=== PATIENT | male | born 1965 | race Caucasian/White ===

== ENCOUNTER → 2021-06-10 14:44 | Outpatient (CLI) | payer OTHER, SELFPAY ==
--- NOTE | ~2021-06-10 | CT_ITS ---
EXAMINATION: CT abdomen pelvis wo con DATE: 06/10/2021 15:19 INDICATION: Renal colic, generalized abdominal pain. Microscopic hematuria. TECHNIQUE: Computed tomography (CT) of the abdomen and pelvis was performed without intravenous contr ast. Automated exposure control and iterative reconstruction technique were employed. Exam dose: 565 .88 mGy-cm total exam DLP. COMPARISON: October 16, 2017 CT abdomen pelvis FINDINGS: Mild discoid scarring in the middle lobe, also present on 10/16/2017. The lung bases are violet r of infiltrate or consolidation. Normal heart size. No pericardial or pleural effusion. Small sliding hiatal hernia. The gallbladder appears unremarkable. No bile duct or pancreatic duct dilatation. Calcified splenic and hepatic granulomas, consistent with old granulomatous disease. No hepatic, splenic, pancreatic, and adrenal or renal space-occupying mass lesion is evident on this limited noncontrast examination. No urinary tract calculus or hydroureteronephrosis. The urinary bladder is unremarkable. There is atherosclerotic calcification of the abdominal aorta and iliac arteries but no aneurysm. No intraperitoneal or retroperitoneal or pelvic mass lesion or adenopathy or ascites. Moderate prostate enlargement.. There are numerous colonic diverticula; no CT evidence of diverticulitis. No bowel obstruction or in traperitoneal free air. No suspicious osteolytic or osteoblastic lesions are noted. IMPRESSION: No urinary tract calculus or hydroureteronephrosis Moderate prostate enlargement Diverticulosis of the colon; no CT evidence of diverticulitis Small sliding hiatal hernia Reviewed, dictated and finalized at [facility]. Reviewed, dictated and finalized at location B.
== END ==
PROVIDERS: PCP Family Medicine; Visit Provider Family Medicine
DX: R10.9 Unspecified abdominal pain (principal); K57.30 Diverticulosis of large intestine without perforation or abscess without bleeding; K44.9 Diaphragmatic hernia without obstruction or gangrene; N40.0 Benign prostatic hyperplasia without lower urinary tract symptoms
CPT/HCPCS: 74176

== ENCOUNTER 2024-10-23 13:56 | Emergency (ER) | payer OTHER, SELFPAY ==
--- NOTE | ~2024-10-23 | CT_ITS ---
EXAMINATION: CT abdomen pelvis wo con DATE: 10/23/2024 16:54 INDICATION: Left flank pain. TECHNIQUE: Computed tomography (CT) of the abdomen and pelvis was performed without intravenous contr ast. Automated exposure control and iterative reconstruction technique were employed. The dose-length product was 470.96 mGy-cm. COMPARISON: CT abdomen and pelvis 06/10/2021 FINDINGS: The visualized portions of lung bases are clear without pneumonia or pleural effusion. The heart size is normal. No pericardial effusion. Calcifications in the liver and spleen are consistent with old granulomatous disease. The gallbladder, pancreas, adrenal glands, and left kidney are normal . There is a 6 mm cyst in right kidney. There is no urolithiasis. There is diverticulosis of the colo n without evidence of diverticulitis. There are no dilated loops of bowel. The appendix is normal. Th ere are no pathologically enlarged lymph nodes. There is no free intraperitoneal fluid. There is mode rate lumbar spondylosis. IMPRESSION: 1. No urolithiasis. Reviewed, dictated and finalized at location A. [employer] IMPRESSION: 1. No urolithiasis.
[2024-10-23 14:06] VITALS: BP 168/91; PULSE 69; TEMP 36.4; O2SAT 100
--- OUTSIDE RECORDS SUMMARY | 2024-10-23 14:11 | XMS_ITS | Clinical Summary ---
Author Organization [facility] Address [address] [place] [address] Care Team Providers Care Switchboard Receptionist Name Role Phone Unavailable Primary Care Provider Unavailabl e Source Comments [facility],non-owned Affiliates and Associated Physician Practices is amultiple site organization consisting of ambulatory clinics and hospital sitesin [place], [place] and [place]. This disclosure is being madepursuant to the Care Everywhere program and may not contain all information available regarding this patient. Last updated 18.[facility] [employer] Allergies No known active allergies Social History Tobacco Use Types Packs/Day Years Used Date Smoking Tobacco: Never Assessed Sex and Gender Information Value Date Recorded Sex Assigned at Not on file Gender Identity Not on file Sexual Orientation Not on file Last Filed Vital Signs Vital Sign Reading Time Taken Comments Blood Pressure 133/56 10/14/2013 1:54 AM AUTO TRANSPORT DRIVER Pulse 76 10/14/2013 1:54 AM AUTO TRANSPORT DRIVER Temperature 36.7 C (98 F) 10/13/2013 9:56 PM AUTO TRANSPORT DRIVER Respiratory Rate 16 10/13/2013 9:56 PM AUTO TRANSPORT DRIVER Oxygen Saturation 100% 10/14/2013 1:54 AM AUTO TRANSPORT DRIVER Inhaled Oxygen Concentration - - Weight 79.4 kg (175 lb) 10/13/2013 9:56 PM AUTO TRANSPORT DRIVER Height 170.2 cm (5' 7 ) 10/13/2013 9:56 PM AUTO TRANSPORT DRIVER Body Mass Index 27.41 10/13/2013 9:56 PM AUTO TRANSPORT DRIVER Plan of Treatment Health Maintenance Due Date Last Done Comments COLOGUARD (AGES 45-75) - COL ON CA SCREENING 1965 COLON MONITORING 1965 COLONOSCOPY - COLON CA SCREENING 1965 CT COLONOGRAPHY - COLON CA SCREENING 1965 Colorectal Cancer Screening 1965 FIT - COLON CA SCREENING 1965 FLEX SIG - COLON CA SCREENING 1965 LIPID TESTING 1965 HIV SCREENING 02/17/1980 HEPATITIS C SCREENING 02/12/1983 DTAP/TDAP/TD VACCINES (1 - Tdap) 02/17/1984 HEPATITIS B VACCINE (1 of 3 - 19+ 3-dose series) 02/17/1984 PNEUMOCOCCAL VACCINE 50+ (1 of 1 - PCV) 2015 ZOSTER VACCINE (1 of 2) 2015 COVID-19 VACCINE (1 - 2023-2 5 season) 2024 INFLUENZA VACCINE (#1) 2024 DEPRESSION SCREENING 09/13/2024 HIB VACCINE Aged Out No longer eligi ble based on patient's age to complete this topic HPV VACCINE Aged Out No longer eligi ble based on patient's age to complete this topic MENINGOCOCCAL (Group B) VACCINE Aged Out No longer eligible based on patient's age to complete this topic MENINGOCOCCAL VACCINE Aged Out No irasema ayesha eligible based on patient's age to complete this topic PNEUMOCOCCAL VACCINE Aged Out No long er eligible based on patient's age to complete this topic
--- OUTSIDE RECORDS SUMMARY | 2024-10-23 14:11 | XMS_ITS | Referral Summary ---
Author Organization [facility] Address [address] [place] [address] Care Team Providers Care Code Machine Operator Name Role Phone Unavailable Primary Care Provider Unavailabl e Source Comments [facility],non-owned Affiliates and Associated Physician Practices is amultiple site organization consisting of ambulatory clinics and hospital sitesin [place], [place], [place] and [place]. This disclosure is being madepursuant to the Care Everywhere program and may not contain all information available regarding this patient. Last updated 18.[facility] [employer] Allergies No known active allergies Social History Tobacco Use Types Packs/Day Years Used Date Smoking Tobacco: Never Assessed Sex and Gender Information Value Date Recorded Sex Assigned at Not on file Gender Identity Not on file Sexual Orientation Not on file Last Filed Vital Signs Vital Sign Reading Time Taken Comments Blood Pressure 133/56 10/14/2013 1:54 AM PHARMACY BUYER Pulse 76 10/14/2013 1:54 AM PHARMACY BUYER Temperature 36.7 C (98 F) 10/13/2013 9:56 PM PHARMACY BUYER Respiratory Rate 16 10/13/2013 9:56 PM PHARMACY BUYER Oxygen Saturation 100% 10/14/2013 1:54 AM PHARMACY BUYER Inhaled Oxygen Concentration - - Weight 79.4 kg (175 lb) 10/13/2013 9:56 PM PHARMACY BUYER Height 170.2 cm (5' 7 ) 10/13/2013 9:56 PM PHARMACY BUYER Body Mass Index 27.41 10/13/2013 9:56 PM PHARMACY BUYER Plan of Treatment Not on file
--- OUTSIDE RECORDS SUMMARY | 2024-10-23 14:11 | XMS_ITS | Patient Health Summary ---
Author Organization [facility] Address [address] [place] [address] Care Team Providers Care Cutter Grinder Name Role Phone Unavailable Primary Care Provider Unavailabl e Note from [facility],non-owned Affiliates and Associated Physician Practices is amultiple site organization consisting of ambulatory clinics and hospital sitesin [place], [place], [place] and [place]. This disclosure is being madepursuant to the Care Everywhere program and may not contain all information available regarding this patient. Last updated 18.[facility] Allergies No known active allergies Social History Tobacco Use Types Packs/Day Years Used Date Smoking Tobacco: Never Assessed Sex and Gender Information Value Date Recorded Sex Assigned at Not on file Gender Identity Not on file Sexual Orientation Not on file Last Filed Vital Signs Vital Sign Reading Time Taken Comments Blood Pressure 133/56 10/14/2013 1:54 AM PAPER BAG MAKING MACHINIST Pulse 76 10/14/2013 1:54 AM PAPER BAG MAKING MACHINIST Temperature 36.7 C (98 F) 10/13/2013 9:56 PM PAPER BAG MAKING MACHINIST Respiratory Rate 16 10/13/2013 9:56 PM PAPER BAG MAKING MACHINIST Oxygen Saturation 100% 10/14/2013 1:54 AM PAPER BAG MAKING MACHINIST Inhaled Oxygen Concentration - - Weight 79.4 kg (175 lb) 10/13/2013 9:56 PM PAPER BAG MAKING MACHINIST Height 170.2 cm (5' 7 ) 10/13/2013 9:56 PM PAPER BAG MAKING MACHINIST Body Mass Index 27.41 10/13/2013 9:56 PM PAPER BAG MAKING MACHINIST Procedures * XR HAND LEFT 3VW OR MORE(Performed 10/14/2013) Performed for Hand pain Results * XR HAND 3+ VW LEFT (10/14/2013 12:12 AM PAPER BAG MAKING MACHINIST) Anatomical Region Laterality Modality Wrist / Hand Radiographic Ernie ging 10/14/2013 10:1 1 AM PAPER BAG MAKING MACHINIST Impressions 10/14/2013 10:11 AM PAPER BAG MAKING MACHINIST Soft tissue injury no fracture or foreign body Narrative 10/14/2013 10:11 AM PAPER BAG MAKING MACHINIST The third digit injury Three views were obtained. HISTORY: Pain FINDINGS: There is a soft tissue defect along the distal palmar aspect of the third digit. There is no foreign body seen The osseous structures are unremarkable. No acute fracture or dislocation is seen. The joint spaces are well preserved. Procedure Note Mike Stuart MD - 10/14/2013 The third digit injury Three views were obtained. HISTORY: Pain FINDINGS: There is a soft tissue defect along the distal palmar aspect of the third digit. There is no foreign body seen The osseous structures are unremarkable. No acute fracture or dislocation is seen. The joint spaces are well preserved. IMPRESSION Soft tissue injury no fracture or foreign body Efra High MD [facility] ORDERABLES
--- OUTSIDE RECORDS SUMMARY | 2024-10-23 14:11 | XMS_ITS | Continuity of Care Document ---
Author Organization [facility] Address [address] [place] [address] [address] [place] [address] Phone Care Team Providers Care Ice Cream Vault Worker Name Role Phone Gilbert OD, Musa Unavailable Unavailable Procedures Procedure Date No Charge Glasses Check Remove Foreign Body From Eye Advance Directives Directive Yes / No Effective Date File Name No Information Encounters Encounter Description Practice Location Reason(s) For Visit Diagnoses Date Provider Providers Copied on Encounter [facility], [address] [place] [address] [address], [place], [place], [id number], tel:[phone] [facility] No Information 7200 7 Gilbert OD Musa. [address] [place], [place] [address] [facility] [address], [place], [place], [facility], . tel:[phone] Referring Provider: [facility] [address], [place], [place], [facility]. tel:[phone] [facility], [address] [place] [address] [address], [place], [place], [id number], tel:[phone] [facility] No Information [address] Iwona Vargas. [facility] [address], [place], [address], . tel:[phone] Family History Family Member Type Diagnosis Age At Onset No Information Payers Payer name Insurance type Covered constitution party ID Authoriza tialan(s) [facility] [id number] Social History Type Description Quantity Date Captured Comments Sex Male Smoking Status No Information Chief Complaint And Reason For Visit No Information Reason For Referral Reason For Referral No Information History Of Present Illness Encounter Date Complaint History Of Prese nt Illness No Information Functional Status Date Functional Assessmen t No Information Instructions Date Instruction Additional Infor mation No Information Assessments Type Assessment Date No Information Patient Care Teams Name Effective Dates (start - stop) Status Members No Information
--- OUTSIDE RECORDS SUMMARY | 2024-10-23 14:11 | XMS_ITS | CONTINUITY OF CARE DOCUMENT ---
Author Name shalini loya Address Unknown Organization [facility] Address [address] [place] [address] Phone [phone] Care Team Providers Care Manager Video Games Name Role Phone Leonel MCINTOSH, Vonnie Unavailable AXEL MCINTOSH, JEANNINE Unavailable INSURANCE PROVIDERS Payer name Policy type / Coverage type [place] [employer] party ID [facility] [id number] Other [id number]
--- NOTE | 2024-10-23 16:23 | ED_ITS ---
HPI - Back Pain/Injury General Chief Complaint: Back Pain/Injury <Lia Gonzales PA-C - Last Filed: 10/25/24 19:00> Stated Complaint: L flank pain, dark urine <Lia Gonzales PA-C - Last Filed: 10/25/24 19:00> Time Seen by Provider: 10/23/24 16:23 <Lia Gonzales PA-C - Last Filed: 10/25/24 19:00> Focused HPI: This is a 59 year old male that presents to the ER for left lower back pain. Ongoing over the last couple of days. Reports the pain is worsening. Worse with movement. He took Naproxen yesterday for pain. No known injury or trauma. GENERAL: Well-appearing, well-nourished, and in no acute distress. HEAD: Normocephalic, atraumatic. CHEST: Clear to auscultation. ?No respiratory distress. HEART: Regular rate and rhythm.? NEURO: ?Alert and oriented x3. Patient screened in triage and initial orders placed.? ?Additional care and disposition to be based upon?diagnostic testing and treatment. <Lia Gonzales PA-C - Last Filed: 10/25/24 19:00> History of Present Illness HPI Narrative: Agree with the HPI above. Patient has a history of sciatica with similar symptoms in the past. Denies any weakness in limb or any sensory changes. No urinary incontinence, saddle anesthesias or urinary retention. Denies any injury trauma. No history of surgeries to the back or leg. <Rogers Patel MD - Last Filed: 10/23/24 20:43> Related Data Home Medications: Home Medications ?Medication ?Instructions ?Recorded ?Confirmed ?Last Taken ?Type cyanocobalamin (vitamin B-12) 1,000 mcg PO DAILY 05/18/22 08/02/24 Unknown History 1,000 mcg tablet <Lia Gonzales PA-C - Last Filed: 10/25/24 19:00> Allergies/Adverse Reactions: Allergies Allergy/AdvReac Type Severity Reaction Status Date / Time atorvastatin AdvReac Intermediate Cramping Verified 12/01/22 17:26 of the Muscles <Lia Gonzales PA-C - Last Filed: 10/25/24 19:00> Review of Systems 2 Review of Systems: As reviewed above in HPI <Rogers Patel MD - Last Filed: 10/23/24 20:43> [facility] Past Medical History Medical History: Medical History BMI 28.0-28.9,adult Actinic keratoses Episodic lightheadedness Acute reaction to situational stress (~09/2023) Laceration of forearm, left (~03/27/23) superficial laceration 4 cm left forearm from tree branch BMI 27.0-27.9,adult 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 Folic acid greater than 24 on 11/27/2022. Folic acid 24 with hemoglobin 14.3 on 06/09/2023. Folic acid 18.7 with hemoglobin 13.9 on 07/27/2024. Vitamin B12 deficiency (05/02/22) Level low at 398 with goal greater than 400 on 05/02/2022 with hemoglobin 14.6. Level normal at 689 on 11/27/2022. Normal at 876 with hemoglobin 14.3 on 06/09/2023. Level normal at 878 on 07/27/2024. Gastritis Chronic rhinitis BMI 29.0-29.9,adult Microscopic hematuria urinalysis normal on 05/02/2022. Urinalysis completely normal 06/09/2023. Abdominal pain in male COVID-19 virus detected (01/10/20) Tobacco use disorder, continuous 1 pack daily (1-1 and half packs of cigarettes daily for 40 years). 1/3 of a pack daily. Encounter for wellness examination in adult Colon cancer screening Normal colonoscopy 2016 with recheck in 10 years. Encounter for prostate cancer screening PSA normal at 1.11 on 05/02/2022. PSA 0.54 on 06/09/2023. PSA 0.45 on 07/27/2024. Mixed hyperlipidemia Total cholesterol 233, triglycerides 164, HDL 33 and LDL 169 on 05/02/2022. Cholesterol 232, triglycerides 101, HDL 32, LDL 178 with ratio 7.3 on 11/27/2022. Cholesterol 212, triglycerides 156, HDL 34, LDL 156 with ratio 6.2 on 06/09/2023. cholesterol 215, triglycerides 131, HDL 29, LDL 160 with ratio 7.4 on 01/01/2024. Cholesterol 228, HDL 34, triglycerides 136, LDL 167 with ratio of 6.7 on 07/27/2024. Essential (primary) hypertension <Lia Gonzales PA-C - Last Filed: 10/25/24 19:00> Social History Social History: Social History Smoking packs per day: 0.33 Smoking cigarettes per day: 6.6 Years smoked: 30 Smoking pack-years: 9.90 Smoking status: Current every day smoker ( 1 pack daily) Tobacco type: cigarettes Alcohol intake: current Alcohol use details: beer and liquor twice a month Substance use: never Substance use type: does not use Lack of Transportation: No Lack of Food: Never True Current Housing: I Have Housing Concerned About Future Housing: No Difficulty Paying Gas/Electric Bills: No Difficulty Paying for Meds: No Currently Unemployed: No Education: High School Diploma/GED Difficulty w/ Childcare or Family Care: No <Lia Gonzales PA-C - Last Filed: 10/25/24 19:00> Exam 2 Narrative: GENERAL: [Well-appearing, well-nourished, and in no acute distress.] HEAD: [Normocephalic, atraumatic.] EYES: [PERRLA and EOMI.] ENT: Nares clear, no rhinorrhea or epistaxis. Mucous membranes moist. NECK: Supple. CHEST: [Clear to auscultation. No respiratory distress.] HEART: [Regular rate and rhythm]. No murmur heard. [Normal peripheral pulses.] ABDOMEN: [Soft, nondistended], [nontender], [No rigidity or guarding] EXTREMITIES: Positive left-sided straight leg raise, normal range of motion, negative contralateral straight leg raise. Palpable reproducible pain with palpation of the left-sided sacroiliac joint, sciatic nerve distribution pain. Able to flex and extend at the left hip, knee and plantar and dorsiflex with 5/5 strength albeit a listing pain. Able to ambulate. Sitting with his legs crossed. No midline tenderness. No deformity. No step-offs. SKIN: Warm, dry, no rash. NEURO: [No focal deficits]. Alert and oriented [x3.] No saddle anesthesias or paresthesias. No weakness, 5/5 strength in the distal legs. No ataxia. PSYCH: [Normal mood and affect.] <Rogers Patel MD - Last Filed: 10/23/24 20:43> Course Vital Signs Vital signs: Vital Signs Temperature 97.6 F 10/23/24 14:06 Pulse Rate 69 10/23/24 14:06 Blood Pressure 168/91 H 10/23/24 14:06 Pulse Oximetry 100 10/23/24 14:06 Oxygen Delivery Room Air 10/23/24 14:06 Temperature 97.6 F 10/23/24 14:06 Pulse Rate 69 10/23/24 21:07 Respiratory Rate 19 10/23/24 21:07 Blood Pressure 162/81 H 10/23/24 21:07 Pulse Oximetry 98 10/23/24 21:07 Oxygen Delivery Room Air 10/23/24 14:06 <Lia Gonzales PA-C - Last Filed: 10/25/24 19:00> Vital Signs Temperature 97.6 F 10/23/24 14:06 Pulse Rate 69 10/23/24 14:06 Blood Pressure 168/91 H 10/23/24 14:06 Pulse Oximetry 100 10/23/24 14:06 Oxygen Delivery Room Air 10/23/24 14:06 Temperature 97.6 F 10/23/24 14:06 Pulse Rate 69 10/23/24 21:07 Respiratory Rate 19 10/23/24 21:07 Blood Pressure 162/81 H 10/23/24 21:07 Pulse Oximetry 98 10/23/24 21:07 Oxygen Delivery Room Air 10/23/24 14:06 <Rogers Patel MD - Last Filed: 10/23/24 20:43> MDM - Back Pain/Injury MDM Narrative Medical decision making narrative: 59-year-old otherwise healthy appearing male presenting to the emergency depart with left-sided back pain. He states he has had recurrence of similar symptoms in the past and thinks it could be sciatica versus a kidney stone. He was sent into the ER for a CT scan. He has pain elicited with range of motion is left lower extremity but has full strength and no signs of neurovascular compromise. 2+ dorsalis pedis pulse. Plantar and dorsiflexion of the ankle 5/5, hip and knee flexion with 5/5 strength and symmetric. Positive straight leg raise on the left side, reproducible pain left-sided sacroiliac joint. No midline tenderness. No red flag symptoms for cauda equina or spinal cord issue based on history and exam. Likely has sciatica or lumbago. Low suspicion kidney stone as he has no urinary symptoms, fever, chills, abdominal pain. CT of the abdomen pelvis was obtained in addition to blood work and urinalysis. He was given Decadron and Dilaudid for analgesia intramuscular injection. Workup shows no leukocytosis or significant anemia. Normal platelet count. Urinalysis without any signs of active infection but there is some blood which means he could potentially passed a previous kidney stone but his CT scan shows no evidence of urolithiasis presently. CT scan also comments on some mild diverticulosis but no diverticulitis, no enlarged lymph nodes, no intraperitoneal free fluid. Moderate lumbar spondylosis is observed. Patient is re-evaluated with symptom improvement. He is safe and stable for discharge home at this time and will be given a steroid for the next several days and encouraged to follow-up with regular doctor or return with any new concerns. <Rogers Patel MD - Last Filed: 10/23/24 20:43> Differential Diagnosis Differential diagnosis: Likely lumbar radiculopathy, sciatica, strain of lumbar region, renal colic, pyelonephritis and other <oRgers Patel MD - Last Filed: 10/23/24 20:43> Medical Records Attestation: I reviewed the patient's medical records. <Rogers Patel MD - Last Filed: 10/23/24 20:43> Lab Data Attestation: I reviewed the patient's lab results. <Rogers Patel MD - Last Filed: 10/23/24 20:43> Result diagrams: 10/23/24 20:13 10/23/24 20:13 <Lia Gonzales PA-C - Last Filed: 10/25/24 19:00> Labs: Lab Results 10/23/24 10/23/24 Range/Units 16:32 20:13 WBC 7.7 (4.5-10.0) K/mm3 RBC 4.52 L (4.6-6.20) M/mm3 Hgb 13.4 L (14.0-18.0) g/dL Hct 39.6 L (42.0-52.0) % MCV 87.6 (80-100) fl MCH 29.6 (26-34) pg MCHC 33.8 (32-36) g/dl RDW 13.5 (11.5-14.5) % Plt Count 238 (150-375) k/mm3 MPV 9.8 (7.4-10.4) fl Immature Gran % (Auto) 0.4 (0-0.5) % Neut % (Auto) 63.7 (45.5-73.1) % Lymph % (Auto) 26.9 (18.3-44.2) % [place] % (Auto) 6.2 (2.6-8.5) % Eos % (Auto) 1.9 (0-4.4) % Baso % (Auto) 0.9 (0.2-1.2) % Lymph # (Auto) 2.08 (0.9-3.2) K/mm3 [place] # (Auto) 0.5 (0.1-0.6) K/mm3 Eos # (Auto) 0.2 (0-0.3) K/mm3 Baso # (Auto) 0.1 (0.0-0.1) K/mm3 Abs Immat Gran (auto) 0.03 (0.00-0.031) K/mm3 Absolute Neuts (auto) 4.9 (1.3-6.7) K/mm3 Absolute Nucleated RBC 0.000 (0.0-0.012) K/mm3 Nucleated RBC % 0.0 (0.0-0.2) % Sodium 140 (137-145) mmol/L Potassium 4.0 (3.4-5.0) mmol/L Chloride 102 (98-107) mmol/L Carbon Dioxide 26 (22-30) mmol/L Anion Gap 12 (4-12) mmol/L BUN 30 H (9-20) mg/dL Creatinine 1.21 (0.7-1.3) mg/dL Estim Creat Clear Calc 55 ml/min Estimated GFR > 60 (59 - ) Glucose 116 H (65-110) mg/dL Calcium 9.4 (8.4-10.2) mg/dL Total Bilirubin 0.5 (0.2-1.3) mg/dL AST 24 (17-59) U/L ALT 36 (6-50) U/L Alkaline Phosphatase 86 (38-126) U/L Total Protein 8.0 (6.3-8.2) g/dL Albumin 4.5 (3.5-5.1) g/dL Urine Color Yellow (Yellow) Urine Appearance Cloudy H (Clear) Urine pH 5.5 (5.0-9.0) Ur Specific [place] 1.030 (1.001-1.035) Urine Protein Trace (Negative) mg/dL Urine Glucose (UA) Negative (Negative) mg/dL Urine Ketones Trace H (Negative) mg/dL Ur Blood (Man) 1+ H (Negative) Urine Nitrate Negative (Negative) Urine Bilirubin Negative (Negative) Urine Urobilinogen 1.0 (<2.0) mg/dL Leukocyte Esterase Rfl Negative (Negative) ARMANDO/UL Urine RBC 11-20 H (0-2) /hpf Urine WBC 0-5 (0-3) /hpf Ur Squamous Epith Cells None seen (Few) /hpf Urine Bacteria None seen /hpf Urine Casts 0-2 <Lia Gonzales PA-C - Last Filed: 10/25/24 19:00> Lab Results 10/23/24 10/23/24 Range/Units 16:32 20:13 WBC 7.7 (4.5-10.0) K/mm3 RBC 4.52 L (4.6-6.20) M/mm3 Hgb 13.4 L (14.0-18.0) g/dL Hct 39.6 L (42.0-52.0) % MCV 87.6 (80-100) fl MCH 29.6 (26-34) pg MCHC 33.8 (32-36) g/dl RDW 13.5 (11.5-14.5) % Plt Count 238 (150-375) k/mm3 MPV 9.8 (7.4-10.4) fl Immature Gran % (Auto) 0.4 (0-0.5) % Neut % (Auto) 63.7 (45.5-73.1) % Lymph % (Auto) 26.9 (18.3-44.2) % [place] % (Auto) 6.2 (2.6-8.5) % Eos % (Auto) 1.9 (0-4.4) % Baso % (Auto) 0.9 (0.2-1.2) % Lymph # (Auto) 2.08 (0.9-3.2) K/mm3 [place] # (Auto) 0.5 (0.1-0.6) K/mm3 Eos # (Auto) 0.2 (0-0.3) K/mm3 Baso # (Auto) 0.1 (0.0-0.1) K/mm3 Abs Immat Gran (auto) 0.03 (0.00-0.031) K/mm3 Absolute Neuts (auto) 4.9 (1.3-6.7) K/mm3 Absolute Nucleated RBC 0.000 (0.0-0.012) K/mm3 Nucleated RBC % 0.0 (0.0-0.2) % Sodium 140 (137-145) mmol/L Potassium 4.0 (3.4-5.0) mmol/L Chloride 102 (98-107) mmol/L Carbon Dioxide 26 (22-30) mmol/L Anion Gap 12 (4-12) mmol/L BUN 30 H (9-20) mg/dL Creatinine 1.21 (0.7-1.3) mg/dL Estim Creat Clear Calc 55 ml/min Estimated GFR > 60 (59 - ) Glucose 116 H (65-110) mg/dL Calcium 9.4 (8.4-10.2) mg/dL Total Bilirubin 0.5 (0.2-1.3) mg/dL AST 24 (17-59) U/L ALT 36 (6-50) U/L Alkaline Phosphatase 86 (38-126) U/L Total Protein 8.0 (6.3-8.2) g/dL Albumin 4.5 (3.5-5.1) g/dL Urine Color Yellow (Yellow) Urine Appearance Cloudy H (Clear) Urine pH 5.5 (5.0-9.0) Ur Specific [place] 1.030 (1.001-1.035) Urine Protein Trace (Negative) mg/dL Urine Glucose (UA) Negative (Negative) mg/dL Urine Ketones Trace H (Negative) mg/dL Ur Blood (Man) 1+ H (Negative) Urine Nitrate Negative (Negative) Urine Bilirubin Negative (Negative) Urine Urobilinogen 1.0 (<2.0) mg/dL Leukocyte Esterase Rfl Negative (Negative) ARMANDO/UL Urine RBC 11-20 H (0-2) /hpf Urine WBC 0-5 (0-3) /hpf Ur Squamous Epith Cells None seen (Few) /hpf Urine Bacteria None seen /hpf Urine Casts 0-2 <Rogers Patel MD - Last Filed: 10/23/24 20:43> Imaging Data Attestation: I personally reviewed and interpreted this imaging study as follows: < Rogers Patel MD - Last Filed: 10/23/24 20:43> My impression: Impressions Abdomen/Pelvis CT 10/23/24 16:55 IMPRESSION: 1. No urolithiasis. <Rogers Patel MD - Last Filed: 10/23/24 20:43> Critical Care Time Critical Care Time Critical Care Time: No <Lia Gonzales PA-C - Last Filed: 10/25/24 19:00> Discharge Plan Discharge Clinical Impression: Low back pain Qualifiers: Chronicity: acute Back pain laterality: left Sciatica presence: with sciatica S ciatica laterality: sciatica of left side Qualified Code(s): M54.42 - Lumbago with sciatica, left side Sciatica Qualifiers: Laterality: left Qualified Code(s): M54.32 - Sciatica, left side Strain of lumbar region Qualifiers: Encounter type: initial encounter Qualified Code(s): S39.012A - Strain of muscle, fascia and tendon of lower back, initial encounter <Lia Gonzales PA-C - Last Filed: 10/25/24 19:00> Patient Disposition: Home, Self-Care <Lia Gonzales PA-C - Last Filed: 10/25/24 19:00> Condition: Stable <Lia Gonzales PA-C - Last Filed: 10/25/24 19:00> Instructions: Antibiotic Form, Acute Low Back Pain (ED), Back Pain (ED), Lower Back Exercises (ED) <Lia Gonzales PA-C - Last Filed: 10/25/24 19:00> Additional Instructions: Your CT scan was reassuring, there is some small amount of blood in your urine which could mean you did pass a recent kidney stone but ultimately I believe your symptoms are likely secondary to musculoskeletal strain in would benefit from some steroids for next few days in addition to Tylenol and Naprosyn at home. You can apply local heat patches or lidocaine. Follow-up with regular doctor. Return to the ER if you have increased pain in your back, you develop lower extremity weakness/numbness/paralysis, you have numbness or tingling in your private parts, or you are unable to control your ability to urinate/stool. <Lia Gonzales PA-C - Last Filed: 10/25/24 19:00> Patient Language: Divehi <MARY Kilgore Last Filed: 10/25/24 19:00> Prescriptions: New acetaminophen [Tylenol Extra Strength] 500 mg tablet 1,000 mg PO TID PRN (Reason: pain) Qty: 30 0RF prednisone 50 mg tablet 50 mg PO DAILY 5 Days Qty: 5 0RF lidocaine 5 % adhesive patch,medicated 1 patch topical DAILY Qty: 15 0RF Rx Instructions: leave on most painful area for up to 12 hrs No Action irbesartan-hydrochlorothiazide 300-12.5 mg tablet 1 tablet PO DAILY Qty: 90 3RF rosuvastatin [Crestor] 10 mg tablet 10 mg PO DAILY Qty: 30 11RF omeprazole 20 mg capsule,delayed release(DR/EC) 20 mg PO DAILY Qty: 30 11RF cyanocobalamin (vitamin B-12) 1,000 mcg tablet 1,000 mcg PO DAILY sildenafil 100 mg tablet 100 mg PO DAILY PRN (Reason: sexual activity) Qty: 90 3RF Rx Instructions: administer 30 minutes to 4 hours before activity orellana pay with good Rx discount fluorouracil [Efudex] 5 % cream 1 applic topical BID 14 Days Qty: 40 1RF Rx Instructions: apply sufficient amount to cover all lesions twice daily for 2 weeks on and then 2 weeks off until clear folic acid 1 mg tablet 1 mg PO DAILY Qty: 90 3RF <Lia Gonzales PA-C - Last Filed: 10/25/24 19:00> Follow-up/Referrals: Lonnie Rodriguez MD [Primary Care Provider] - <Lai Gonzales PA-C - Last Filed: 10/25/24 19:00> Time of Disposition: 20:42 <Lia Gonzales PA-C - Last Filed: 10/25/24 19:00> 20:42 <Rogers Patel MD - Last Filed: 10/23/24 20:43>
[2024-10-23 16:41] LABS: Add Urine Microscopic? YES; Appearance Urine Cloudy (Clear); Bacteria Urine None Seen /hpf; Bilirubin Urine Negative (Negative); Blood Urine 1+ (Negative); Color Urine Yellow (Yellow); Glucose Urine UA Negative (Negative); Ketones Urine Trace mg/dL (Negative); Leukocyte Esterase Ur Negative LEU/UL (Negative); Nitrate Urine Negative (Negative); Non Pathogenic Casts 0-2; Protein Urine Trace mg/dL (Negative); Squamous Epithelial Cell Urine None Seen /hpf (Few); WBC Urine 0-5 /hpf (0-3); pH Urine 5.5 (5.0-9.0)
[2024-10-23 17:09] VITALS: BP 170/84; PULSE 66; RESP 17; O2SAT 99
--- OUTSIDE RECORDS SUMMARY | 2024-10-23 20:10 | XMS_ITS | Referral Summary ---
Author Organization [facility] Address [address] [place] [address] Care Team Providers Care Director Global Name Role Phone Unavailable Primary Care Provider Unavailabl e Source Comments [facility],non-owned Affiliates and Associated Physician Practices is amultiple site organization consisting of ambulatory clinics and hospital sitesin [place], [place], [place] and [place]. This disclosure is being madepursuant to the Care Everywhere program and may not contain all information available regarding this patient. Last updated 18.[facility] [employer] Allergies No known active allergies Social History Tobacco Use Types Packs/Day Years Used Date Smoking Tobacco: Never Assessed Sex and Gender Information Value Date Recorded Sex Assigned at Not on file Gender Identity Not on file Sexual Orientation Not on file Last Filed Vital Signs Vital Sign Reading Time Taken Comments Blood Pressure 133/56 10/14/2013 1:54 AM [employer] Pulse 76 10/14/2013 1:54 AM [employer] Temperature 36.7 C (98 F) 10/13/2013 9:56 PM [employer] Respiratory Rate 16 10/13/2013 9:56 PM [employer] Oxygen Saturation 100% 10/14/2013 1:54 AM [employer] Inhaled Oxygen Concentration - - Weight 79.4 kg (175 lb) 10/13/2013 9:56 PM [employer] Height 170.2 cm (5' 7 ) 10/13/2013 9:56 PM [employer] Body Mass Index 27.41 10/13/2013 9:56 PM [employer] Plan of Treatment Not on file
--- OUTSIDE RECORDS SUMMARY | 2024-10-23 20:10 | XMS_ITS | CONTINUITY OF CARE DOCUMENT ---
Author Name shalini loya Address Unknown Organization [facility] Address [address] [place] [address] Phone [phone] Care Team Providers Care Design And Sales Consultant Name Role Phone Leonel MCINTOSH, Vonnie Unavailable AXEL MCINTOSH, JEANNINE Unavailable [phone] INSURANCE PROVIDERS Payer name Policy type / Coverage type [place] red green party ID [facility] [id number] Other [id number]
--- OUTSIDE RECORDS SUMMARY | 2024-10-23 20:10 | XMS_ITS | Clinical Summary ---
Author Organization [facility] Address [address] [place] [address] Care Team Providers Care Oil And Gas Principal Name Role Phone Unavailable Primary Care Provider Unavailabl e Source Comments [facility],non-owned Affiliates and Associated Physician Practices is amultiple site organization consisting of ambulatory clinics and hospital sitesin [place], [place], [place] and [place]. This disclosure is being madepursuant to the Care Everywhere program and may not contain all information available regarding this patient. Last updated 18.[facility] [employer] Allergies No known active allergies Social History Tobacco Use Types Packs/Day Years Used Date Smoking Tobacco: Never Assessed Sex and Gender Information Value Date Recorded Sex Assigned at Not on file Gender Identity Not on file Sexual Orientation Not on file Last Filed Vital Signs Vital Sign Reading Time Taken Comments Blood Pressure 133/56 10/14/2013 1:54 AM [employer] Pulse 76 10/14/2013 1:54 AM [employer] Temperature 36.7 C (98 F) 10/13/2013 9:56 PM [employer] Respiratory Rate 16 10/13/2013 9:56 PM [employer] Oxygen Saturation 100% 10/14/2013 1:54 AM [employer] Inhaled Oxygen Concentration - - Weight 79.4 kg (175 lb) 10/13/2013 9:56 PM [employer] Height 170.2 cm (5' 7 ) 10/13/2013 9:56 PM [employer] Body Mass Index 27.41 10/13/2013 9:56 PM [employer] Plan of Treatment Health Maintenance Due Date [...]
--- OUTSIDE RECORDS SUMMARY | 2024-10-23 20:10 | XMS_ITS | Patient Health Summary ---
Author Organization [facility] [employer] Address [address] [place] [address] Care Team Providers Care Principal Technical Writer Name Role Phone Unavailable Primary Care Provider Unavailabl e Note from [facility] [place],non-owned Affiliates and Associated Physician Practices is amultiple site organization consisting of ambulatory clinics and hospital sitesin [place], [place], [place] and [place]. This disclosure is being madepursuant to the Care Everywhere program and may not contain all information available regarding this patient. Last updated 18.[facility] [employer] Allergies No known active allergies Social History Tobacco Use Types Packs/Day Years Used Date Smoking Tobacco: Never Assessed Sex and Gender Information Value Date Recorded Sex Assigned at Not on file Gender Identity Not on file Sexual Orientation Not on file Last Filed Vital Signs Vital Sign Reading Time Taken Comments Blood Pressure 133/56 10/14/2013 1:54 AM [employer] Pulse 76 10/14/2013 1:54 AM [employer] Temperature 36.7 C (98 F) 10/13/2013 9:56 PM [employer] Respiratory Rate 16 10/13/2013 9:56 PM [employer] Oxygen Saturation 100% 10/14/2013 1:54 AM [employer] Inhaled Oxygen Concentration - - Weight 79.4 kg (175 lb) 10/13/2013 9:56 PM [employer] Height 170.2 cm (5' 7 ) 10/13/2013 9:56 PM [employer] Body Mass Index 27.41 10/13/2013 9:56 PM [employer] Procedures * XR HAND LEFT 3VW OR MORE(Performed 10/14/2013) Performed for Hand pain Results * XR HAND 3+ VW LEFT (10/14/2013 12:12 AM [employer]) Anatomical Region Laterality Modality Wrist / Hand Radiographic Ernie ging 10/14/2013 10:1 1 AM [employer] Impressions 10/14/2013 10:11 AM [employer] Soft tissue injury no fracture or foreign body Narrative 10/14/2013 10:11 AM [employer] The third digit injury Three views were [...] foreign body Efra High MD DIAGNOSTIC [facility] ORDERABLES
--- OUTSIDE RECORDS SUMMARY | 2024-10-23 20:10 | XMS_ITS | Continuity of Care Document ---
Author Organization [facility] Address [address] [place] [address] [address] [place] [address] Phone Care Team Providers Care First Grade Teacher Name Role Phone Gilbert OD, Muas Unavailable Unavailable Procedures Procedure Date No Charge Glasses Check Remove Foreign Body From Eye Advance Directives Directive Yes / No Effective Date File Name No Information Encounters Encounter Description Practice Location Reason(s) For Visit Diagnoses Date Provider Providers Copied on Encounter [facility], [address] [place] [address] [address], [place], [place], [id number], tel:[phone] [facility] No Information 7200 7 Gilbert OD Musa. [address] [place], [place] [address] [facility] [address], [place], [facility], . tel:[phone] Referring Provider: [facility] [address], [place], [facility]. tel:[phone] [facility], [address] [place] [address] [address], [place], [place], [id number], tel:[phone] [facility] No Information [address] [facility]. [facility] [address], [place], [address], . tel:[phone] Family History Family Member Type Diagnosis Age At Onset No Information Payers Payer name Insurance type Covered democrat ID Authoriza tialan(s) [facility] [id number] Social History Type Description Quantity Date Captured [...]
[2024-10-23 20:26] LABS: Basophils Absolute Auto 0.1 K/mm3 (0.0-0.1); Basophils Percent Auto 0.9 % (0.2-1.2); Eosinophils Absolute Auto 0.2 K/mm3 (0-0.3); Eosinophils Percent Auto 1.9 % (0-4.4); Hematocrit 39.6 % (42.0-52.0); Hemoglobin 13.4 g/dL (14.0-18.0); Immature Granulocyte Absolute 0.03 K/mm3 (0.00-0.031); Immature Granulocyte Percent A 0.4 % (0-0.5); Lymphocytes Absolute Auto 2.08 K/mm3 (0.9-3.2); Lymphocytes Percent Auto 26.9 % (18.3-44.2); Mean Corpuscular HGB Conc 33.8 g/dl (32-36); Mean Corpuscular Hemoglobin 29.6 pg (26-34); Mean Corpuscular Volume 87.6 fl (80-100); Mean Platelet Volume 9.8 fl (7.4-10.4); Monocytes Absolute Auto 0.5 K/mm3 (0.1-0.6); Monocytes Percent Auto 6.2 % (2.6-8.5); Neutrophils Absolute Auto 4.9 K/mm3 (1.3-6.7); Neutrophils Percent Auto 63.7 % (45.5-73.1); Platelet Count Result 238 k/mm3 (150-375); Red Blood Count 4.52 M/mm3 (4.6-6.20); Red Cell Distribution Width 13.5 % (11.5-14.5); White Blood Count 7.7 K/mm3 (4.5-10.0)
[2024-10-23 20:32] VITALS: PULSE 88; RESP 19; O2SAT 99
[2024-10-23 20:41] LABS: Alanine Aminotransferase 36 U/L (6-50); Albumin Level 4.5 g/dL (3.5-5.1); Alkaline Phosphatase 86 U/L (38-126); Anion Gap 12 mmol/L (4-12); Aspartate Amino Transferase 24 U/L (17-59); Bilirubin,Total 0.5 mg/dL (0.2-1.3); Blood Urea Nitrogen 30 mg/dL (9-20); Calcium 9.4 mg/dL (8.4-10.2); Carbon Dioxide 26 mmol/L (22-30); Chloride 102 mmol/L (98-107); Estimated CRCL calculation 55 ml/min; Estimated Glomerular Filt Rate > 60; Glucose 116 mg/dL (65-110); Sodium 140 mmol/L (137-145)
[2024-10-23] MEDS: dexAMETHasone SOD PHOS INJ 10 MG/ML 1 ML VIAL IM (20:41)
[2024-10-23 20:45] VITALS: BP 162/81; PULSE 69; RESP 19; O2SAT 98
[2024-10-23] MEDS: HYDROmorphone HCL INJ (*CRX) 1 MG/ML SYR IM (20:46)
[2024-10-23 21:07] VITALS: BP 162/81; PULSE 69; RESP 19; O2SAT 98
== END 2024-10-23 21:09 | disposition home or self-care (01) ==
PROVIDERS: Physician Assistant; Emergency Provider Student in an Organized Health Care Education/Training Program; PCP Family Medicine
DX: M54.42 Lumbago with sciatica, left side (principal); S39.012A Strain of muscle, fascia and tendon of lower back, initial encounter; F17.210 Nicotine dependence, cigarettes, uncomplicated; E78.5 Hyperlipidemia, unspecified; I10 Essential (primary) hypertension; X58.XXXA Exposure to other specified factors, initial encounter
CPT/HCPCS: 36415; 74176; 80053; 81001; 85025; 96372; 99284; J1100; J1171